=== PATIENT | female | born 1980 | race Caucasian/White ===

== ENCOUNTER → 2024-09-22 17:36 | Outpatient (REF) | payer BC, SELFPAY | LOC: RAD 17:36 | PROVIDERS: ATTENDING PHYSICIAN Nurse Practitioner Adult Health | DX: M25.562 Pain in left knee (principal) | CPT/HCPCS: 73564 ==

== ENCOUNTER → 2025-08-09 06:33 | Outpatient (REF) | payer BC, SELFPAY ==
[2025-08-09 07:31] LABS: Hematocrit 35.2 % (37.0-47.0); Hemoglobin 11.1 g/dL (12.0-16.0); Mean Corp Hgb Conc. 31.5 g/dL (33.0-37.0); Mean Corpuscular Volume 87.1 fL (81.0-99.0); Nucleated Red Blood Cells % 0 %; Platelet Count 343 10^3/uL (130-400); Red Cell Dist. Width 14.3 % (11.5-14.5)
[2025-08-09 08:04] LABS: ALT (SGPT) 13 U/L (0-35); AST (SGOT) 21 U/L (14-36); Albumin 4.1 g/dl (3.5-5.0); Alkaline Phosphatase 48 U/L (38-126); Blood Urea Nitrogen 15 mg/dl (7-17); Calcium 8.9 mg/dl (8.4-10.2); Carbon Dioxide 26 mmol/L (22-30); Chloride 108 mmol/L (98-107); Glucose 89 mg/dl (70-99); HDL Cholesterol 87 mg/dl; Iron 30 ug/dl (37-170); LDL Cholesterol, Calculated 147 mg/dl; Potassium 4.6 mmol/L (3.5-5.1); Sodium 139 mmol/L (135-145); Total Protein 6.6 g/dl (6.3-8.2); Very Low Density Lipoprotein 13 mg/dl (0-30); eGFR > 60.00
[2025-08-09 08:14] LABS: Total Iron Binding Capacity 427 ug/dl (265-497)
== END ==
LOC: REG 06:33
PROVIDERS: ATTENDING PHYSICIAN Nurse Practitioner Adult Health
DX: R53.83 Other fatigue (principal); D50.9 Iron deficiency anemia, unspecified; Z00.00 Encounter for general adult medical examination without abnormal findings
CPT/HCPCS: 36415; 80053; 80061; 83540; 83550; 84443; 85025